=== PATIENT | male | born 1950 | race Caucasian/White ===

== ENCOUNTER → 2024-01-28 14:00 | Outpatient (CLI) | payer MEDICARE, SELFPAY ==
[2024-01-28 14:55] LABS: Alanine Aminotransferase 28 IU/L (<50); Albumin 4.4 g/dL (3.5-5.0); Albumin Globulin Ratio 1.8 (1.0-2.8); Alkaline Phosphatase 62 U/L (38-126); Aspartate Aminotransferase 28 IU/L (17-59); BUN Creatinine Ratio 17.1 (6-22); Bilirubin Total 0.5 mg/dL (0.2-1.3); Blood Urea Nitrogen 22 mg/dL (9-20); Calcium 8.9 mg/dL (8.4-10.2); Carbon Dioxide 25 mmol/L (22-32); Chloride 108 mmol/L (98-107); Estimated Glomerular Filt Rate 59 mL/min (>60); Globulin 2.5 g/dL (1.7-4.1); Glucose 90 mg/dL (80-110); HEMOLYSIS < 15 (0-50); Potassium 4.4 mmol/L (3.4-5.1); Sodium 142 mmol/L (137-145); Total Protein 6.9 g/dL (6.3-8.2)
[2024-01-28 14:56] LABS: Hematocrit 42.3 % (41-53); Hemoglobin 14.4 g/dL (13.5-17.5); Mean Corpuscular HGB Conc 34.1 % (30-36); Mean Corpuscular Hemoglobin 31.5 PG (26-34); Mean Corpuscular Volume 92.3 fL (80-100); Platelet Count 243 X10^3/uL (150-400); Red Blood Cell Count 4.58 X10^6/uL (4.5-5.9); Red Cell Distribution Width 14.4 % (11.6-14.8); White Blood Cell Count 9.1 X10^3/uL (4.5-11.0)
[2024-01-28 15:24] LABS: TSH w/ Reflex to FT4 4.91 uIU/mL (0.47-4.68)
[2024-01-28 15:52] LABS: Free T4, Direct Thyroxine 0.89 ng/dL (0.78-2.19)
[2024-01-28 17:22] LABS: Hep C Virus Ab w/Reflex Quant NEGATIVE s/c (NEGATIVE)
== END ==
PROVIDERS: PCP Family Medicine; Referring Provider Family Medicine; Visit Provider Family Medicine
DX: E03.9 Hypothyroidism, unspecified (principal); Z11.59 Encounter for screening for other viral diseases; I10 Essential (primary) hypertension
CPT/HCPCS: 36415; 80053; 84439; 84443; 85027; 86803

== ENCOUNTER → 2024-08-08 09:08 | Outpatient (CLI) | payer MEDICARE, SELFPAY ==
[2024-08-08 10:00] LABS: Blood Urea Nitrogen 14 mg/dL (9-20); Calcium 9.3 mg/dL (8.4-10.2); Carbon Dioxide 25 mmol/L (22-32); Chloride 106 mmol/L (98-107); Cholesterol 236 mg/dL (140-199); Estimated Glomerular Filt Rate > 60 mL/min (>60); Glucose 103 mg/dL (80-110); HDL Cholesterol 41 mg/dL (40-60); HEMOLYSIS < 15 (0-50); LDL Cholesterol Calculated 163 mg/dL (<100); Potassium 4.5 mmol/L (3.4-5.1); Sodium 139 mmol/L (137-145); Triglycerides 159 mg/dL (35-150)
[2024-08-08 10:57] LABS: Free T4, Direct Thyroxine 0.77 ng/dL (0.78-2.19)
== END ==
LOC: LAB 09:09
PROVIDERS: PCP Family Medicine; Referring Provider Family Medicine; Visit Provider Family Medicine
DX: E03.9 Hypothyroidism, unspecified (principal); N18.2 Chronic kidney disease, stage 2 (mild); I12.9 Hypertensive chronic kidney disease with stage 1 through stage 4 chronic kidney disease, or unspecified chronic kidney disease
CPT/HCPCS: 36415; 80048; 80061; 84439; 84443

== ENCOUNTER → 2024-11-10 12:17 | Outpatient (CLI) | payer MEDICARE, SELFPAY ==
--- NOTE | 2024-11-10 12:18 | DI.US.S_ITS ---
PROCEDURE: US ABD AORTA ANEURYSM SCREEN INDICATIONS: screening TECHNIQUE: Real time scanning was performed of the aorta and iliac arteries, with image documentation. COMPARISON: None. FINDINGS: Aorta: Proximal aortic diameter measures 2.7 cm. Mid-aorta measures 2 point cm. Distal aortic diameter is 2 cm. Iliac arteries: Right common iliac artery measures 0.9 cm. Left common iliac artery measures 1 cm. IMPRESSION: Negative for aneurysm. By published criteria, ultrasound follow-up is recommended in 5 years. Dictated by: Kavon Estrada M.D. on 11/10/2024 at 12:53 Approved by: Kavon Estrada M.D. on 11/10/2024 at 12:54
== END ==
LOC: US 12:18
PROVIDERS: PCP Family Medicine; Referring Provider Family Medicine; Visit Provider Family Medicine
DX: Z13.6 Encounter for screening for cardiovascular disorders (principal)
CPT/HCPCS: 76706

== ENCOUNTER → 2024-11-11 08:30 | Outpatient (CLI) | payer MEDICARE, SELFPAY ==
[2024-11-11 09:44] LABS: Cholesterol 175 mg/dL (140-199); HDL Cholesterol 41 mg/dL (40-60); LDL Cholesterol Calculated 112 mg/dL (<100); Triglycerides 109 mg/dL (35-150)
[2024-11-11 10:38] LABS: Free T4, Direct Thyroxine 0.99 ng/dL (0.78-2.19)
== END ==
PROVIDERS: PCP Family Medicine; Referring Provider Family Medicine; Visit Provider Family Medicine
DX: Z13.6 Encounter for screening for cardiovascular disorders (principal); I10 Essential (primary) hypertension; E03.9 Hypothyroidism, unspecified; E78.5 Hyperlipidemia, unspecified
CPT/HCPCS: 36415; 80061; 84439; 84443

== ENCOUNTER 2025-05-12 01:08 | Emergency (ER) | payer MEDICARE, SELFPAY ==
[2025-05-12] VITALS (8 sets, daily range): BP systolic 155–227; BP diastolic 72–113; PULSE 62–87; RESP 16; TEMP 36.5; O2SAT 94–98; BMI 30.6
--- NOTE | 2025-05-12 01:34 | ED_ITS ---
HPI - Abdominal Pain
--- NOTE | 2025-05-12 01:34 | ED.ABDPAIN ---
HPI - Abdominal Pain General Chief Complaint: Abdominal Pain Stated Complaint: Constipation, Abdominal Pain Time Seen by Provider: 05/12/25 01:23 History of Present Illness HPI narrative: 74-year-old male complains of lower abdominal discomfort, thinks he might be constipated, has regular daily bowel movements, no bowel movement for 2 days. No difficulty or pain with urination. No black or red stools, occasional loose stools. No recent antibiotic exposure. No fevers or chills. No recalled problems with colitis or diverticulitis. No bowel cancers known. No urinary retention problems known, no indwelling urinary catheters. Related Data Previous Rx's ?Medication ?Instructions ?Recorded levothyroxine 50 mcg tablet 50 mcg PO DAILY #100 tabs 08/12/24 rosuvastatin 40 mg tablet (Crestor) 40 mg PO DAILY #100 tabs 11/17/24 tamsulosin 0.4 mg capsule 0.4 mg PO DAILY #14 caps 05/12/25 Allergies Allergy/AdvReac Type Severity Reaction Status Date / Time No Known Drug Allergies Allergy Unverified 05/12/25 01:29 Patient History Medical History (Updated 05/12/25 @ 05:09 by Asad Valdovinos MD) Hyperlipidemia, unspecified CKD (chronic kidney disease), stage II Benign essential HTN Hypothyroidism Social History Smoking Status: Never smoker Exam Narrative Exam Narrative: GENERAL: Well-developed patient, in mild distress. HEAD: Atraumatic. Normocephalic. EYES: Pupils equal round and reactive. Extraocular motions intact. No scleral icterus. No injection or drainage. ENT: No obvious craniofacial traumatic changes. Airway patent. NECK: Trachea midline. Non tender CARDIOVASCULAR: Regular rate and rhythm without murmurs, gallops, or rubs. RESPIRATORY: Clear to auscultation. Breath sounds equal bilaterally. No wheezes, rales, or rhonchi. GASTROINTESTINAL: Mild suprapubic area tenderness, guarding or rebound tenderness, bowel tones unremarkable. EXTREMITIES: No edema or joint tenderness. BACK: Nontender without deformity or crepitance. No flank tenderness. NEURO: AOx3. Motor functions grossly nonfocal. SKIN: No rash or erythema of visible areas Initial Vital Signs Initial Vital Signs: Vital Signs Temperature 97.7 F 05/12/25 01:29 Pulse Rate 87 05/12/25 01:29 Respiratory Rate 16 05/12/25 01:29 Blood Pressure 227/113 H 05/12/25 01:29 Pulse Oximetry 98 05/12/25 01:29 Oxygen Delivery Method Room Air 05/12/25 01:29 Course Orders Ordered: ED Orders 05/12/25 01:28 Urine Culture Stat Urine Microscopic Stat 05/12/25 01:40 Complete Blood Count AUTO DIFF Stat Comprehensive Metabolic Panel Stat Lipase Stat 05/12/25 01:57 CT abdomen pelvis w con Stat Discontinued Medications Lidocaine HCl (Lidocaine 2% (Glydo) 6 Ml Gel) 6 ml TOP NOW ONE Stop: 05/12/25 01:58 Last Admin: 05/12/25 02:21 Dose: 6 ml Documented By: HNKole Vital Signs Vital signs: Vital Signs - 8 hr 05/12/25 01:29 05/12/25 02:15 05/12/25 02:16 Temperature 97.7 F Pulse Rate 87 74 75 Respiratory Rate 16 Blood Pressure 227/113 H Pulse Oximetry 98 97 97 Oxygen Delivery Method Room Air Room Air 05/12/25 02:16 05/12/25 02:34 05/12/25 02:35 Temperature Pulse Rate 77 78 Respiratory Rate Blood Pressure 156/88 H Pulse Oximetry 94 97 Oxygen Delivery Method 05/12/25 02:35 05/12/25 03:00 05/12/25 03:00 Temperature Pulse Rate 71 Respiratory Rate Blood Pressure 173/82 H 157/72 H Pulse Oximetry 96 Oxygen Delivery Method 05/12/25 03:30 05/12/25 03:30 05/12/25 04:00 Temperature Pulse Rate 72 62 Respiratory Rate Blood Pressure 155/74 H Pulse Oximetry 94 98 Oxygen Delivery Method Room Air 05/12/25 04:00 Temperature Pulse Rate Respiratory Rate Blood Pressure 159/74 H Pulse Oximetry Oxygen Delivery Method MDM - Abdominal Pain Lab Data Attestation: I reviewed the patient's lab results. Lab results narrative: White blood cell count 18157, hemoglobin 14.2, platelets adequate. Glucose 117. BUN 22 with creatinine 1.03 normal, serum CO2 normal, electrolytes normal. Liver functions and lipase normal. Urine dip negative. 05/12/25 01:40 05/12/25 01:40 Labs: Lab Results 05/12/25 05/12/25 Range/Units 01:28 01:40 WBC 11.0 (4.5-11.0) X10^3/uL RBC 4.66 (4.5-5.9) X10^6/uL Hgb 14.2 (13.5-17.5) g/dL Hct 42.0 (41-53) % MCV 90.2 (80-100) fL MCH 30.6 (26-34) PG MCHC 33.9 (30-36) % RDW 14.2 (11.6-14.8) % Plt Count 213 (150-400) X10^3/uL Neut % (Auto) 76.5 H (50-75) % Lymph % (Auto) 12.0 L (25-40) % Williams % (Auto) 7.0 (3-14) % Eos % (Auto) 3.7 (2-4) % Baso % (Auto) 0.8 (0-2) % Neut # (Auto) 8400 H (7940-7475) /uL Lymph # (Auto) 1300 (3535-4054) /uL Williams # (Auto) 800 (0-900) /uL Eos # (Auto) 400 (0-450) /uL Baso # (Auto) 100 (0-100) /uL Sodium 138 (137-145) mmol/L Potassium 4.1 (3.4-5.1) mmol/L Chloride 106 (98-107) mmol/L Carbon Dioxide 22 (22-32) mmol/L BUN 22 H (9-20) mg/dL Creatinine 1.03 (0.66-1.25) mg/dL Estimated GFR > 60 (>60) mL/min BUN/Creatinine Ratio 21.4 (6-22) Glucose 117 H (70-99) mg/dL Calcium 9.0 (8.4-10.2) mg/dL Total Bilirubin 0.7 (0.2-1.3) mg/dL AST 32 (17-59) IU/L ALT 19 (<50) IU/L Alkaline Phosphatase 66 (38-126) U/L Total Protein 7.8 (6.3-8.2) g/dL Albumin 4.5 (3.5-5.0) g/dL Globulin 3.3 (1.7-4.1) g/dL Albumin/Globulin Ratio 1.4 (1.0-2.8) Lipase 65 (23-300) U/L Urine RBC None seen (0-5/HPF) Urine WBC None seen (0-5/HPF) Ur Squamous Epith Cells None seen (0-5/HPF) Urine Bacteria None seen (None) Ur Culture Indicated? Cult not indicated Vol Urine Centrifuged 10ml (spun) Point of care testing: Urine Dip Bedside Urine Glucose Negative Bedside Urine Bilirubin - Negative Bedside Urine Ketone - Negative Urine Specific Hines 1.015 Bedside Urine Occult Blood + Bedside Urine pH 6 Bedside Urine Protein - Negative Bedside Urine Urobilinogen - Negative Bedside Urine Nitrite - Negative Bedside Urine Leukocytes - Negative Esterase MDM Narrative Medical decision making narrative: 74-year-old male with concerns about possible constipation, no bowel movement for 2 days, lower abdominal discomfort. Afebrile, sirs screen negative. Bladder scan by nursing showed significant volume, Gale catheter placed, large volume nonbloody urine drained from bladder, tolerated well. Labs pending. CT abdomen and pelvis had been ordered. Lab data: White blood cell count 48385, hemoglobin 14.2, platelets adequate. Glucose 117. BUN 22 with creatinine 1.03 normal, serum CO2 normal, electrolytes normal. Liver functions and lipase normal. Urine dip negative. CT abdomen and pelvis. Impressions: ?Marked urinary bladder wall thickening, suggestive of cystitis. A stone is apparent within the urinary bladder lumen. There is subtle right hydroureteronephrosis, without a ureteral stone. Recent passage of a stone is a possibility. Prostate enlargement. Splenic lesion, probably a benign hemangioma.? See tele radiology report. Copy of CT scan printed for patient, discussed at bedside with patient and spouse. Urinalysis negative, we will hold antibiotics for now pending urine culture. Might have passed a right-sided ureteral stone, doubt bladder outlet obstruction from stone since hydroureteronephrosis was unilateral non bilateral. Prostatic enlargement noted. Follow up with Urology advised. No evidence for constipation. Difficulty with defecation might have been related to urinary retention symptoms. We will leave Gale in place, urinary retention, elderly male, prostatic enlargement. Will prescribe Flomax for discharge, has adequate blood pressure range to tolerate. Follow up with office of Dr. Henriquez [facility] urology later this week, for possible urinary catheter removal. Discharged home with family. Discharge Plan Departure Patient Disposition: Home Clinical Impression: Acute urinary retention, Bladder stone, Prostate enlargement, Splenic lesion Activity Restrictions/Additional Instructions: See printed discharge that was created during downtime interval when EHR upgrade in progress. Tamsulosin had been sent electronically as prescription prior to down time initiation. Prescriptions: New tamsulosin 0.4 mg capsule 0.4 mg PO DAILY Qty: 14 0RF No Action rosuvastatin [Crestor] 40 mg tablet 40 mg PO DAILY Qty: 100 3RF levothyroxine 50 mcg tablet 50 mcg PO DAILY Qty: 100 3RF Referrals: Surinder Henriquez DO [Physician, Urology] Bri Harris DO [Primary Care Provider, Family Practice] Stand Alone Forms: Patient Portal/API
[2025-05-12 01:50] LABS: Culture Indicated Urine Cult Not Indicated
[2025-05-12 01:52] LABS: Add Manual Diff / Slide Review NO; Hematocrit 42.0 % (41-53); Hemoglobin 14.2 g/dL (13.5-17.5); Lymphocytes Absolute Auto 1300 /uL (1100-4500); Mean Corpuscular HGB Conc 33.9 % (30-36); Mean Corpuscular Hemoglobin 30.6 PG (26-34); Mean Corpuscular Volume 90.2 fL (80-100); Platelet Count 213 X10^3/uL (150-400)
--- NOTE | 2025-05-12 01:57 | DI.CT.S_ITS ---
PROCEDURE: CT ABDOMEN PELVIS W CON
[2025-05-12 02:04] LABS: Alanine Aminotransferase 19 IU/L (<50); Albumin 4.5 g/dL (3.5-5.0); Albumin Globulin Ratio 1.4 (1.0-2.8); Alkaline Phosphatase 66 U/L (38-126); Blood Urea Nitrogen 22 mg/dL (9-20); Calcium 9.0 mg/dL (8.4-10.2); Carbon Dioxide 22 mmol/L (22-32); Chloride 106 mmol/L (98-107); Estimated Glomerular Filt Rate > 60 mL/min (>60); Globulin 3.3 g/dL (1.7-4.1); Glucose 117 mg/dL (70-99); HEMOLYSIS < 15 (0-50); Lipase 65 U/L (23-300); Potassium 4.1 mmol/L (3.4-5.1); Sodium 138 mmol/L (137-145); Total Protein 7.8 g/dL (6.3-8.2)
[2025-05-12] MEDS: LIDOCAINE 2% (GLYDO) 6 ML GEL TOP (02:21)
== END 2025-05-12 04:10 | disposition home or self-care (01) ==
PROVIDERS: Emergency Provider Emergency Medicine; PCP Family Medicine
DX: N21.0 Calculus in bladder (principal); N40.1 Benign prostatic hyperplasia with lower urinary tract symptoms; R33.8 Other retention of urine; D73.89 Other diseases of spleen
CPT/HCPCS: 36415; 51798; 74177; 80053; 81003; 81015; 83690; 85025; 87086; 99284; Q9967

== ENCOUNTER 2025-05-14 09:45 | Emergency (ER) | payer MEDICARE, SELFPAY ==
[2025-05-14 09:54] VITALS: BP 158/91; PULSE 97; RESP 16; TEMP 36.6; O2SAT 96; BMI 31.6
--- NOTE | 2025-05-14 09:58 | ED_ITS ---
HPI - General Adult
--- NOTE | 2025-05-14 09:58 | ED.GENADULT ---
HPI - General Adult General Stated complaint: Catheter coming out Time Seen by Provider: 05/14/25 09:53 History of Present Illness HPI narrative: 74-year-old gentleman history of urinary retention status post Gale placement presents today with Velcro tape dislodged from from Gale catheter tube placement around the leg. Patient has no urinary complaints at this time. Other than what is stated 14 point review of systems negative. Related Data Previous Rx's ?Medication ?Instructions ?Recorded levothyroxine 50 mcg tablet 50 mcg PO DAILY #100 tabs 08/12/24 rosuvastatin 40 mg tablet (Crestor) 40 mg PO DAILY #100 tabs 11/17/24 tamsulosin 0.4 mg capsule 0.4 mg PO DAILY #14 caps 05/12/25 Allergies Allergy/AdvReac Type Severity Reaction Status Date / Time No Known Drug Allergies Allergy Unverified 05/14/25 09:57 Review of Systems Review of Systems ROS Unobtainable: All systems reviewed & are unremarkable except as noted in HPI and below Patient History Medical History (Updated 05/14/25 @ 10:00 by Jovanny Bolanos, ) Hyperlipidemia, unspecified CKD (chronic kidney disease), stage II Benign essential HTN Hypothyroidism Exam Narrative Exam Narrative: GENERAL: [74] year old patient appears stated age. Well-developed patient, in mild distress. HEAD: Atraumatic. Normocephalic. EYES: Pupils equal round and reactive. Extraocular motions intact. No scleral icterus. No injection or drainage. ENT: Nose without bleeding, purulent drainage. Throat without erythema, tonsillar hypertrophy or exudate. Airway patent. NECK: Trachea midline. Non tender GASTROINTESTINAL: Abdomen soft, non-tender, nondistended. EXTREMITIES: No edema or joint tenderness. BACK: Nontender without deformity or crepitance. No flank tenderness. NEURO: AOx3. SKIN: No rash or erythema of visible areas Medical Decision Making MDM Narrative Medical decision making narrative: Vital signs nurse triage note medication list previous ER visits in all imaging studies reviewed. New velcro band tape applied to Gale catheter around leg to secure at this time as it had loosened. Will have patient follow up with Urology at scheduled appointment. Discharge Plan Departure Patient Disposition: Home Clinical Impression: Encounter for Gale catheter fitting and adjustment Activity Restrictions/Additional Instructions: Return with new or worsening symptoms. Follow up at Urology appointment as previously scheduled. Prescriptions: No Action rosuvastatin [Crestor] 40 mg tablet 40 mg PO DAILY Qty: 100 3RF levothyroxine 50 mcg tablet 50 mcg PO DAILY Qty: 100 3RF tamsulosin 0.4 mg capsule 0.4 mg PO DAILY Qty: 14 0RF Referrals: Bri Harris DO [Primary Care Provider, Family Practice] Stand Alone Forms: Patient Portal/API
== END 2025-05-14 10:09 | disposition home or self-care (01) ==
PROVIDERS: Emergency Provider Family Medicine; PCP Family Medicine
DX: T83.9XXA Unspecified complication of genitourinary prosthetic device, implant and graft, initial encounter (principal)
CPT/HCPCS: 99281

== ENCOUNTER 2025-05-16 12:05 | Emergency (ER) | payer MEDICARE, SELFPAY ==
[2025-05-16 12:10] VITALS: BP 230/100; PULSE 84; RESP 20; TEMP 36.9; O2SAT 98
--- NOTE | 2025-05-16 12:15 | ED_ITS ---
HPI - Male Genitourinary
--- NOTE | 2025-05-16 12:15 | ED.MALEGU ---
HPI - Male Genitourinary General Stated complaint: needs catheter attached to leg Time Seen by Provider: 05/16/25 12:15 History of Present Illness HPI Narrative: 74-year-old gentleman history of urinary retention status post Gale placement here after Velcro tape dislodged from the Gale catheter tube placement around the leg again here to get have it more secured set of pulling from the Gale catheter as the bag pulls from the tube and causes discomfort. Other than what is stated 14 point review of system is negative. Related Data Previous Rx's ?Medication ?Instructions ?Recorded levothyroxine 50 mcg tablet 50 mcg PO DAILY #100 tabs 08/12/24 rosuvastatin 40 mg tablet (Crestor) 40 mg PO DAILY #100 tabs 11/17/24 tamsulosin 0.4 mg capsule 0.4 mg PO DAILY #14 caps 05/12/25 Allergies Allergy/AdvReac Type Severity Reaction Status Date / Time No Known Drug Allergies Allergy Unverified 05/14/25 09:57 Review of Systems Review of Systems ROS Unobtainable: All systems reviewed & are unremarkable except as noted in HPI and below Patient History Medical History (Updated 05/16/25 @ 12:18 by Jovanny Bolanos, ) Hyperlipidemia, unspecified CKD (chronic kidney disease), stage II Benign essential HTN Hypothyroidism Exam Narrative Exam Narrative: GENERAL: [74] year old patient appears stated age. Well-developed patient, in mild distress. HEAD: Atraumatic. Normocephalic. EYES: Pupils equal round and reactive. Extraocular motions intact. No scleral icterus. No injection or drainage. NEURO: AOx3. MDM - Male Genitourinary MDM Narrative Medical decision making narrative: All lab work, vital signs, nurse triage note, medication list, previous ER visits, and all imaging studies reviewed. Gale catheter strap on leg fitting new device placed and secured now. Extra strap device given to patient. Patient will follow up with Dr. Henriquez on Sunday at scheduled appointment. Discharge Plan Departure Patient Disposition: Home Clinical Impression: Encounter for Gale catheter fitting and adjustment Instructions: How to Care for Your Gale Catheter -- Male Activity Restrictions/Additional Instructions: Return with new or worsening symptoms. Follow up with Dr. Henriquez urologist at your scheduled appointment on Sunday. Prescriptions: No Action rosuvastatin [Crestor] 40 mg tablet 40 mg PO DAILY Qty: 100 3RF levothyroxine 50 mcg tablet 50 mcg PO DAILY Qty: 100 3RF tamsulosin 0.4 mg capsule 0.4 mg PO DAILY Qty: 14 0RF Referrals: Bri Harris DO [Primary Care Provider, Family Practice] Stand Alone Forms: Patient Portal/API
--- NOTE | 2025-05-16 12:20 | PC.NURSE ---
This is patients 3rd visit for a new attachment device for aguilera cath. New stat lock placed to R thigh. Pt given additional to go home with. Is to follow up with Dr Henriquez this week. No additional complaints. Dr Bolanos in triage to see. No additional questions
== END 2025-05-16 12:23 | disposition home or self-care (01) ==
PROVIDERS: Emergency Provider Family Medicine; PCP Family Medicine
DX: T83.9XXA Unspecified complication of genitourinary prosthetic device, implant and graft, initial encounter (principal)
CPT/HCPCS: 99281

== ENCOUNTER → 2025-06-11 13:26 | Outpatient (CLI) | payer MEDICARE, SELFPAY ==
[2025-06-11 14:44] LABS: Free T3, Triiodothyronine Free 2.85 pg/mL (2.77-5.27); Free T4, Direct Thyroxine 0.87 ng/dL (0.78-2.19)
[2025-06-11 14:58] LABS: Thyroid Stimulating Hormone 4.34 uIU/mL (0.47-4.68)
== END ==
PROVIDERS: PCP Family Medicine; Referring Provider Family Medicine; Visit Provider Family Medicine
DX: E03.9 Hypothyroidism, unspecified (principal)
CPT/HCPCS: 36415; 84439; 84443; 84481

== ENCOUNTER → 2025-06-18 08:56 | Outpatient (CLI) | payer MEDICARE, SELFPAY | PROVIDERS: PCP Family Medicine; Visit Provider Urology | DX: R33.9 Retention of urine, unspecified (principal); N40.1 Benign prostatic hyperplasia with lower urinary tract symptoms | CPT/HCPCS: 87086 ==